=== PATIENT | female | born 1955 | race Caucasian/White ===

== ENCOUNTER 2019-02-05 06:49 | Day surgery (SDC) | payer OTHER ==
[2019-02-05] MEDS ORDERED: Sodium Chloride 0.9% 10 ML Syringe FLUSH PRN (07:00)
[2019-02-05] MEDS ORDERED: Lidocaine 1%/Sod Bicarbonate in NS 8.4% 1 ML Syringe IDERM PRN (07:00)
[2019-02-05] MEDS: Lactated Ringers 1,000 ML IV SCH ×2 (07:25→08:42)
--- NOTE | 2019-02-05 07:38 | PCM.PREANE ---
Preanesthetic Assessment - Procedure Proposed Procedure: colonoscopy - Anesthesia/Transfusion/Family Hx Anesthesia History: Prior Anesthesia Without Reaction Family History of Anesthesia Reaction: No Transfusion History: No Prior Transfusion(s) Intubation History: Unknown - Review of Systems General: No Symptoms Pulmonary: No Symptoms Cardiovascular: No Symptoms Gastrointestinal: No Symptoms Neurological: No Symptoms Other: Reports: Depression, Anxiety - Physical Assessment NPO Status Date: 02/05/19 NPO Status Time: 07:00 (patient claims / clear water at 0700 ) Pulse: 69 O2 Sat by Pulse Oximetry: 93 Respiratory Rate: 16 Blood Pressure: 151/79 Temperature: 36.6 C Height: 1.7 m ASA Class: 2 Mental Status: Alert & Oriented x3 Airway Class: Mallampati = 2 Dentition: Reports: Normal Dentition ROM/Head Extension: Full Lungs: Clear to Auscultation, Normal Respiratory Effort Cardiovascular: Regular Rate, Regular Rhythm - Allergies Allergies/Adverse Reactions: Allergies Allergy/AdvReac Type Severity Reaction Status Date / Time No Known Allergies Allergy Verified 02/04/19 14:32 - Blood Blood Available: No - Anesthesia Plan Pre-Op Medication Ordered: None - Acknowledgements Anesthesia Type Planned: MAC Pt an Appropriate Candidate for the Planned Anesthesia: Yes Alternatives and Risks of Anesthesia Discussed w Pt/Guardian: Yes Pt/Guardian Understands and Agrees with Anesthesia Plan: Yes PreAnesthesia Questionnaire HEENT History: Reports: Glaucoma, Impaired Vision, Other (See Below) Other HEENT History: telangiectasia, tonsillitis Cardiovascular History: Reports: High Cholesterol, Hypertension, Other (See Below) Other Cardiovascular History: palpitations Respiratory History: Reports: None Gastrointestinal History: Reports: Other (See Below) Other Gastrointestinal History: LLQ pain, blood in stool Genitourinary History: Reports: None 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 Musculoskeletal History: Reports: None Neurological History: Reports: None Psychiatric History: Reports: Anxiety, Depression Endocrine/Metabolic History: Reports: Obesity/BMI 30+ Hematologic History: Reports: None Oncologic (Cancer) History: Reports: None Dermatologic History: Reports: None - Past Surgical History Head Surgeries/Procedures: Reports: None Cardiovascular Surgical History: Reports: None Respiratory Surgical History: Reports: None GI Surgical History: Reports: Colonoscopy Female Surgical History: Reports: Hysterectomy Male Surgical History: Reports: None Endocrine Surgical History: Reports: None Neurological Surgical History: Reports: None Musculoskeletal Surgical History: Reports: None Oncologic Surgical History: Reports: None - SUBSTANCE USE Smoking Status *Q: Never Smoker Recreational Drug Use History: No - HOME MEDS Home Medications: Home Meds . [No Known Home Meds] 02/04/19 [History] - CURRENT (IN HOUSE) MEDS Current Meds: Current Medications Lactated Ringer's (Ringers, Lactated) 1,000 mls @ 125 mls/hr IV ASDIRECTED ZACH Stop: 02/05/19 23:00 Lidocaine/Sodium Bicarbonate (Buffered Lidocaine 1% In Ns 8.4%) 0.25 ml IDERM ONETIME PRN PRN Reason: Prior to IV Start Stop: 02/05/19 18:00 Sodium Chloride (Saline Flush) 10 ml FLUSH ASDIRECTED PRN PRN Reason: Keep Vein Open Stop: 02/05/19 18:00
[2019-02-05] MEDS ORDERED: Propofol 200 MG/20 ML SDV ONE (07:57)
[2019-02-05] MEDS ORDERED: Lidocaine 1% 4 ML ONE (07:58)
[2019-02-05] MEDS ORDERED: Midazolam 1 MG/ML 2 ML SDV ONE (10:05)
[2019-02-05] MEDS ORDERED: fentaNYL 100 MCG/2 ML SDV ONE (10:15)
--- NOTE | 2019-02-05 11:18 | PCM48HPAN ---
Post Anesthesia Note - EVALUATION WITHIN 48HRS OF ANESTHETIC Vital Signs in Normal Range: Yes Patient Participated in Evaluation: Yes Respiratory Function Stable: Yes Airway Patent: Yes Cardiovascular Function Stable: Yes Hydration Status Stable: Yes Pain Control Satisfactory: Yes Nausea and Vomiting Control Satisfactory: Yes Mental Status Recovered: Yes Pulse Rate: 69 Resp Rate: 16 Temperature: 36.6 C Blood Pressure: 151/79
--- NOTE | 2019-02-05 16:16 | OR ---
DATE OF OPERATION: 02/05/2019 SURGEON: Gus Cordova MD PREOPERATIVE DIAGNOSIS: Colorectal cancer screening. POSTOPERATIVE DIAGNOSIS: Colorectal cancer screening. OPERATION PERFORMED: Screening colonoscopy. FINDINGS: Excellent bowel prep. No polyps. No diverticulosis. ANESTHESIA: MAC. COMPLICATIONS: None. ESTIMATED BLOOD LOSS: None. PATHOLOGY: None. DISPOSITION: Stable at the end of procedure. INDICATION: The patient is a 63-year-old female, 10 years out from her last colonoscopy. She has no history of polyps, no family history of colon cancer, and she is asymptomatic. The patient was offered a screening colonoscopy per the standard of care. She was fully informed of the major risks, benefits, and alternatives. She gave informed consent. Please see my H and P for further details of discussion. DESCRIPTION OF PROCEDURE: The patient was brought to the gastro suite and placed in the left lateral decubitus position. She was given monitored anesthesia. A digital rectal exam was performed with lubrication. This was unremarkable. I introduced the colonoscope into the rectum with copious lubrication. I advanced the scope slowly and carefully with gentle forward pressure keeping lumen in view at all times. I identified the cecum photographically. I slowly investigated the mucosa of the colon from the cecum back to the anus in an exam lasting 7 minutes. A thorough careful examination failed to demonstrate polyps. No diverticulosis was noted. After thorough careful examination, the scope was withdrawn. She was awakened from anesthesia and moved to recovery in stable condition. PLAN: She will need another screening colonoscopy in 10 years. MMODAL /[id number]
== END 2019-02-05 11:13 | disposition home or self-care (01) ==
LOC: JD.SDS 06:49
PROVIDERS: ATTEND Surgery
DX: Z12.11 Encounter for screening for malignant neoplasm of colon (principal); I10 Essential (primary) hypertension; E78.00 Pure hypercholesterolemia, unspecified; E78.5 Hyperlipidemia, unspecified; F41.9 Anxiety disorder, unspecified; F32.9 Major depressive disorder, single episode, unspecified; E66.9 Obesity, unspecified; Z68.34 Body mass index [BMI] 34.0-34.9, adult
CPT/HCPCS: 45378; J2001; J2250; J2704; J3010; J7120; 00812

== ENCOUNTER 2019-10-09 06:48 | Day surgery (SDC) | payer BC ==
[2019-10-09] MEDS ORDERED: Pilocarpine 4% Ophth Soln 15 ML Bot EYERT SCH (07:00)
[2019-10-09] MEDS ORDERED: Cefuroxime 10 MG/ML SYRINGE EYERT SCH (07:00)
[2019-10-09] MEDS ORDERED: Lidocaine 1% PF 2 ML SDV INJECT SCH (07:00)
[2019-10-09] MEDS: Polymyxin B/Trimethoprim 10 ML Bottle EYERT SCH ×3 (07:14→08:28)
[2019-10-09] MEDS: Brimonidine 0.2% Ophth Soln 5 ML Bottle EYERT SCH ×3 (07:19→08:28)
[2019-10-09] MEDS: Phenylephrine 2.5% Ophth Soln 2 ML Bot EYERT SCH ×5 (07:25→08:10)
[2019-10-09] MEDS: Tropicamide 1% Ophth Soln 15 ML Bottle EYERT SCH ×4 (07:32→08:00)
--- NOTE | 2019-10-09 07:32 | PCM.PREANE ---
Preanesthetic Assessment - Anesthesia/Transfusion/Family Hx Anesthesia History: Prior Anesthesia Without Reaction Family History of Anesthesia Reaction: No Transfusion History: No Prior Transfusion(s) Intubation History: Unknown - Review of Systems General: No Symptoms Pulmonary: No Symptoms Cardiovascular: No Symptoms Gastrointestinal: No Symptoms Neurological: No Symptoms Other: Reports: Anxiety - Physical Assessment NPO Status Date: 10/08/19 NPO Status Time: 18:00 Vital Signs: Last Vital Signs Temp 36.6 C 10/09/19 06:55 Pulse 76 10/09/19 06:55 Resp 16 10/09/19 06:55 BP 147/87 H 10/09/19 06:55 Pulse Ox 93 L 10/09/19 06:55 Height: 1.7 m Weight: 97.522 kg ASA Class: 2 Mental Status: Alert & Oriented x3 Airway Class: Mallampati = 1 Dentition: Reports: [place](s) Thyro-Mental Finger Breadths: 3 Mouth Opening Finger Breadths: 3 ROM/Head Extension: Full Lungs: Clear to Auscultation, Normal Respiratory Effort Cardiovascular: Regular Rate, Regular Rhythm - Allergies Allergies/Adverse Reactions: Allergies Allergy/AdvReac Type Severity Reaction Status Date / Time No Known Allergies Allergy Verified 10/08/19 14:44 - Blood Blood Available: No Product(s) Available: None - Anesthesia Plan Pre-Op Medication Ordered: None - Acknowledgements Anesthesia Type Planned: MAC Pt an Appropriate Candidate for the Planned Anesthesia: Yes Alternatives and Risks of Anesthesia Discussed w Pt/Guardian: Yes Pt/Guardian Understands and Agrees with Anesthesia Plan: Yes PreAnesthesia Questionnaire HEENT History: Reports: Glaucoma, Impaired Vision, Other (See Below) Other HEENT History: telangiectasia, tonsillitis Cardiovascular History: Reports: High Cholesterol, Hypertension, Other (See Below) Other Cardiovascular History: palpitations Respiratory History: Reports: None Gastrointestinal History: Reports: GERD, Other (See Below) Other Gastrointestinal History: LLQ pain, blood in stool Genitourinary History: Reports: None 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 Musculoskeletal History: Reports: None Neurological History: Reports: None Psychiatric History: Reports: Anxiety, Depression Endocrine/Metabolic History: Reports: Obesity/BMI 30+ Hematologic History: Reports: None Oncologic (Cancer) History: Reports: None Dermatologic History: Reports: None - Past Surgical History Head Surgeries/Procedures: Reports: None Cardiovascular Surgical History: Reports: None Respiratory Surgical History: Reports: None GI Surgical History: Reports: Colonoscopy Female Surgical History: Reports: Hysterectomy Male Surgical History: Reports: None Endocrine Surgical History: Reports: None Neurological Surgical History: Reports: None Musculoskeletal Surgical History: Reports: None Oncologic Surgical History: Reports: None - HOME MEDS Home Medications: Home Meds Citalopram [Citalopram HBr] 20 mg PO DAILY 10/08/19 [History] Phentermine HCl [Adipex-P] 37.5 mg PO DAILY 10/08/19 [History] atorvaSTATin [Lipitor] 40 mg PO BEDTIME 10/08/19 [History] - CURRENT (IN HOUSE) MEDS Current Meds: Current Medications Brimonidine Tartrate (Alphagan 0.2% Ophth Soln) 0 ml EYERT ASDIRECTED ZACH Stop: 10/09/19 23:00 Last Admin: 10/09/19 07:19 Dose: 1 drop Cefuroxime Sodium (Zinacef) 0 mg EYERT ASDIRECTED ZACH Stop: 10/09/19 23:00 Lidocaine HCl (Xylocaine-Mpf 1%) 1 ml INJECT ASDIRECTED ZACH Stop: 10/09/19 23:00 Phenylephrine HCl (Pedrito-Synephrine 2.5% Ophth Soln) 0 ml EYERT ASDIRECTED ZACH Stop: 10/09/19 23:00 Last Admin: 10/09/19 07:25 Dose: 1 drop Pilocarpine HCl (Pilocar 4% Ophth Soln) 0 ml EYERT ASDIRECTED ZACH Stop: 10/09/19 23:00 Polymyxin/Trimethoprim Sulfate (Polytrim Ophth Soln) 0 ml EYERT ASDIRECTED ZACH Stop: 10/09/19 23:00 Last Admin: 10/09/19 07:14 Dose: 1 drop Tetracaine HCl (Tetracaine 0.5% Steri-Unit Deya) 0 ml EYERT ASDIRECTED ZACH Stop: 10/09/19 23:00 Tropicamide (Mydriacyl 1% Ophth Soln) 0 ml EYERT ASDIRECTED ZACH Stop: 10/09/19 23:00
[2019-10-09] MEDS: Tetracaine HCl/PF 0.5% 4 ML Bottle EYERT SCH ×2 (08:04→08:18)
--- NOTE | 2019-10-09 13:25 | PCM48HPAN ---
Post Anesthesia Note - EVALUATION WITHIN 48HRS OF ANESTHETIC Vital Signs in Normal Range: Yes Patient Participated in Evaluation: Yes Respiratory Function Stable: Yes Airway Patent: Yes Cardiovascular Function Stable: Yes Hydration Status Stable: Yes Pain Control Satisfactory: Yes Nausea and Vomiting Control Satisfactory: Yes Mental Status Recovered: Yes Vital Signs: Last Vital Signs Temp 36.7 C 10/09/19 08:33 Pulse 72 10/09/19 08:33 Resp 18 10/09/19 08:33 BP 135/65 10/09/19 08:33 Pulse Ox 96 10/09/19 08:33 - COMMENTS/OBSERVATIONS Free Text/Narrative:: no anesthesia complications noted
== END 2019-10-09 08:40 | disposition home or self-care (01) ==
LOC: JD.SDS 06:48
PROVIDERS: ATTEND Ophthalmology
DX: H25.813 Combined forms of age-related cataract, bilateral (principal); H33 Retinal detachments and breaks; H40.003 Preglaucoma, unspecified, bilateral; H35.413 Lattice degeneration of retina, bilateral; H16.103 Unspecified superficial keratitis, bilateral; H16.223 Keratoconjunctivitis sicca, not specified as Sjogren's, bilateral; H02.834 Dermatochalasis of left upper eyelid; H02.831 Dermatochalasis of right upper eyelid; I10 Essential (primary) hypertension; E78.00 Pure hypercholesterolemia, unspecified; F41.9 Anxiety disorder, unspecified; F32.9 Major depressive disorder, single episode, unspecified; K21.9 Gastro-esophageal reflux disease without esophagitis; E66.9 Obesity, unspecified; Z68.33 Body mass index [BMI] 33.0-33.9, adult; Z79.899 Other long term (current) drug therapy
CPT/HCPCS: 66984; J0697; J2001; C1780

== ENCOUNTER 2019-11-06 06:55 | Day surgery (SDC) | payer BC ==
[2019-11-06] MEDS ORDERED: Pilocarpine 4% Ophth Soln 15 ML Bot EYELF SCH (07:00)
[2019-11-06] MEDS ORDERED: Cefuroxime 10 MG/ML SYRINGE EYELF SCH (07:00)
[2019-11-06] MEDS ORDERED: Lidocaine 1% PF 2 ML SDV INJECT SCH (07:00)
[2019-11-06] MEDS: Polymyxin B/Trimethoprim 10 ML Bottle EYELF SCH ×3 (07:14→08:47)
[2019-11-06] MEDS: Brimonidine 0.2% Ophth Soln 5 ML Bottle EYELF SCH ×3 (07:18→08:47)
[2019-11-06] MEDS: Phenylephrine 2.5% Ophth Soln 2 ML Bot EYELF SCH ×5 (07:22→08:26)
[2019-11-06] MEDS: Tropicamide 1% Ophth Soln 15 ML Bottle EYELF SCH ×4 (07:26→08:01)
--- NOTE | 2019-11-06 07:43 | PCM.PREANE ---
Preanesthetic Assessment - Procedure Proposed Procedure: left eye cataract with IOL - Anesthesia/Transfusion/Family Hx Anesthesia History: Prior Anesthesia Without Reaction Family History of Anesthesia Reaction: No Transfusion History: No Prior Transfusion(s) Intubation History: Unknown - Review of Systems General: No Symptoms Pulmonary: No Symptoms Cardiovascular: No Symptoms Gastrointestinal: No Symptoms Neurological: No Symptoms Other: Reports: None, Depression, Anxiety - Physical Assessment NPO Status Date: 11/05/19 NPO Status Time: 23:30 Vital Signs: Last Vital Signs Temp 36.1 C 11/06/19 07:00 Pulse 77 11/06/19 07:00 Resp 16 11/06/19 07:00 BP 140/78 11/06/19 07:00 Pulse Ox 94 L 11/06/19 07:00 Height: 1.7 m Weight: 92.986 kg ASA Class: 2 Mental Status: Alert & Oriented x3 Airway Class: Mallampati = 1 Dentition: Reports: Normal Dentition Thyro-Mental Finger Breadths: 3 Mouth Opening Finger Breadths: 5 ROM/Head Extension: Full Lungs: Clear to Auscultation, Normal Respiratory Effort Cardiovascular: Regular Rate, Regular Rhythm - Allergies Allergies/Adverse Reactions: Allergies Allergy/AdvReac Type Severity Reaction Status Date / Time No Known Allergies Allergy Verified 11/05/19 13:23 - Blood Blood Available: No - Anesthesia Plan Pre-Op Medication Ordered: None - Acknowledgements Anesthesia Type Planned: MAC Pt an Appropriate Candidate for the Planned Anesthesia: Yes Alternatives and Risks of Anesthesia Discussed w Pt/Guardian: Yes Pt/Guardian Understands and Agrees with Anesthesia Plan: Yes PreAnesthesia Questionnaire HEENT History: Reports: Glaucoma, Impaired Vision, Other (See Below) Other HEENT History: telangiectasia, tonsillitis Cardiovascular History: Reports: High Cholesterol, Hypertension, Other (See Below) Other Cardiovascular History: palpitations Respiratory History: Reports: None Gastrointestinal History: Reports: GERD, Other (See Below) Other Gastrointestinal History: LLQ pain, blood in stool Genitourinary History: Reports: None 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 Musculoskeletal History: Reports: None Neurological History: Reports: None Psychiatric History: Reports: Anxiety, Depression Endocrine/Metabolic History: Reports: Obesity/BMI 30+ Hematologic History: Reports: None Oncologic (Cancer) History: Reports: None Dermatologic History: Reports: None - Past Surgical History Head Surgeries/Procedures: Reports: None Cardiovascular Surgical History: Reports: None Respiratory Surgical History: Reports: None GI Surgical History: Reports: Colonoscopy Female Surgical History: Reports: Hysterectomy Male Surgical History: Reports: None Endocrine Surgical History: Reports: None Neurological Surgical History: Reports: None Musculoskeletal Surgical History: Reports: None Oncologic Surgical History: Reports: None - HOME MEDS Home Medications: Home Meds Citalopram [Citalopram HBr] 20 mg PO DAILY 10/08/19 [History] Phentermine HCl [Adipex-P] 37.5 mg PO DAILY 10/08/19 [History] atorvaSTATin [Lipitor] 40 mg PO BEDTIME 10/08/19 [History] - CURRENT (IN HOUSE) MEDS Current Meds: Current Medications Brimonidine Tartrate (Alphagan 0.2% Ophth Soln) 0 ml EYELF ASDIRECTED ZACH Stop: 11/06/19 23:00 Last Admin: 11/06/19 07:18 Dose: 1 drop Cefuroxime Sodium (Zinacef) 0 mg EYELF ASDIRECTED ZACH Stop: 11/06/19 23:00 Lidocaine HCl (Xylocaine-Mpf 1%) 1 ml INJECT ASDIRECTED ZACH Stop: 11/06/19 23:00 Phenylephrine HCl (Pedrito-Synephrine 2.5% Ophth Soln) 0 ml EYELF ASDIRECTED ZACH Stop: 11/06/19 23:00 Last Admin: 11/06/19 07:30 Dose: 1 drop Pilocarpine HCl (Pilocar 4% Ophth Soln) 0 ml EYELF ASDIRECTED ZACH Stop: 11/06/19 23:00 Polymyxin/Trimethoprim Sulfate (Polytrim Ophth Soln) 0 ml EYELF ASDIRECTED ZACH Stop: 11/06/19 23:00 Last Admin: 11/06/19 07:14 Dose: 1 drop Tetracaine HCl (Tetracaine 0.5% Steri-Unit Deya) 0 ml EYEBOTH ASDIRECTED ZACH Stop: 11/06/19 23:00 Tropicamide (Mydriacyl 1% Ophth Soln) 0 ml EYELF ASDIRECTED ZACH Stop: 11/06/19 23:00 Last Admin: 11/06/19 07:35 Dose: 1 drop
[2019-11-06] MEDS: Tetracaine HCl/PF 0.5% 4 ML Bottle EYEBOTH SCH ×2 (08:10→08:34)
--- NOTE | 2019-11-06 08:55 | PCM48HPAN ---
Post Anesthesia Note - EVALUATION WITHIN 48HRS OF ANESTHETIC Vital Signs in Normal Range: Yes Patient Participated in Evaluation: Yes Respiratory Function Stable: Yes Airway Patent: Yes Cardiovascular Function Stable: Yes Hydration Status Stable: Yes Pain Control Satisfactory: Yes Nausea and Vomiting Control Satisfactory: Yes Mental Status Recovered: Yes Vital Signs: Last Vital Signs Temp 36.1 C 11/06/19 07:00 Pulse 77 11/06/19 07:00 Resp 16 11/06/19 07:00 BP 140/78 11/06/19 07:00 Pulse Ox 94 L 11/06/19 07:00
== END 2019-11-06 08:55 | disposition home or self-care (01) ==
LOC: JD.SDS 06:55
PROVIDERS: ATTEND Ophthalmology
DX: H25.812 Combined forms of age-related cataract, left eye (principal); I10 Essential (primary) hypertension; E78.00 Pure hypercholesterolemia, unspecified; Z98.890 Other specified postprocedural states; Z96.1 Presence of intraocular lens; Z79.899 Other long term (current) drug therapy; Z98.41 Cataract extraction status, right eye
CPT/HCPCS: C1780; J0697; J2001

== ENCOUNTER → 2020-12-07 | Day surgery (SDC) | payer BC ==
[2020-12-07] MEDS: Brimonidine 0.2% Ophth Soln 5 ML Bottle EYEBOTH SCH ×2 (10:38→11:30)
[2020-12-07] MEDS: Phenylephrine 2.5% Ophth Soln 2 ML Bot EYEBOTH SCH ×2 (10:42→10:54)
[2020-12-07] MEDS: Tropicamide 1% Ophth Soln 15 ML Bottle EYEBOTH SCH ×2 (10:46→11:00)
== END ==
LOC: JD.SDS 10:19
PROVIDERS: ATTEND Ophthalmology
DX: H26.493 Other secondary cataract, bilateral (principal); H16.103 Unspecified superficial keratitis, bilateral; H16.223 Keratoconjunctivitis sicca, not specified as Sjogren's, bilateral; H40.003 Preglaucoma, unspecified, bilateral; H31.092 Other chorioretinal scars, left eye; H33.302 Unspecified retinal break, left eye; H02.836 Dermatochalasis of left eye, unspecified eyelid; H02.833 Dermatochalasis of right eye, unspecified eyelid; E78.00 Pure hypercholesterolemia, unspecified; I10 Essential (primary) hypertension; Z96.1 Presence of intraocular lens